=== PATIENT | male | born 2000 | race Caucasian/White ===

== ENCOUNTER 2023-08-09 20:35 | Emergency (ER) | payer MEDICAID ==
[~2023-08-09] VITALS: Ht 175.3 cm; Wt 118.2 kg
[~2023-08-09 20:35] MED LIST: ADAL40PE SUBCUT; CLON0.2T PO; FAMO-128 PO; FLUO15OI15 TP; LISD70CA PO; NAPR-1154 PO; OXCA150T14 PO; OXCA300T16 PO; QUET-1 PO
[2023-08-09 20:43] VITALS: BP 149/90; PULSE 100; RESP 18; O2SAT 99
[2023-08-09] MEDS: LIDOcaine 1% 30ml preserv. free vial IJ STA (21:17)
[2023-08-09] MEDS: TETanus/Pertussis (Acell)/Diphther VAC/PF (Tdap-Adult) 0.5ml syringe IMVAC ONE (21:29)
[2023-08-09 21:40] VITALS: TEMP 98.3
[2023-08-09] MEDS ORDERED: SULF1TAB49 PO (21:41)
== END 2023-08-09 21:42 | disposition home or self-care (01) ==
LOC: ER 20:36
DX: S91.115A Laceration without foreign body of left lesser toe(s) without damage to nail, initial encounter (principal); M06.9 Rheumatoid arthritis, unspecified; Z79.899 Other long term (current) drug therapy; W45.8XXA Other foreign body or object entering through skin, initial encounter; Y93.89 Activity, other specified; Y92.89 Other specified places as the place of occurrence of the external cause; Y99.8 Other external cause status
CPT/HCPCS: 12001; 90471; 90715; 99283; J3490; A6449